=== PATIENT | male | born 1945 | race Caucasian/White ===

== ENCOUNTER 2023-07-22 10:11 | Outpatient (OUT) | payer MEDICARE, OTHER, SELFPAY ==
[2023-07-22 10:36] LABS: Basophils Absolute Auto 0.1 10^3/uL (0.0-0.1); Basophils Percent Auto 0.9 % (0.2-2.0); Eosinophils Absolute Auto 0.2 10^3/uL (0.0-0.7); Hemoglobin 14.3 g/dL (14.0-18.0); Immature Granulocytes Abs Auto 0.01 10^3/uL (0.00-0.03); Immature Granulocytes Pct Auto 0.2 % (0.0-0.5); Lymphocytes Absolute Auto 1.2 10^3/uL (1.2-3.8); Lymphocytes Percent Auto 23.1 % (20.5-60.0); Mean Corpuscular HGB Conc 33.3 g/dL (29.9-35.2); Mean Corpuscular Hemoglobin 31.5 pg (25.9-34.0); Mean Corpuscular Volume 94.7 fL (80.0-94.0); Mean Platelet Volume 9.1 fL (9.5-13.5); Monocytes Absolute Auto 0.4 10^3/uL (0.3-0.8); Monocytes Percent Auto 7.7 % (1.7-12.0); Neutrophils Absolute Auto 3.5 10^3/uL (1.4-6.5); Neutrophils Percent Auto 65.1 % (43.0-75.0); Platelet Count 221 10^3/uL (150-450); Red Blood Count 4.54 10^6/uL (4.70-6.10); Red Cell Distribution Width 12.4 % (11.0-15.0); White Blood Count 5.3 10^3/uL (4.0-11.0)
[2023-07-22 11:05] LABS: Alanine Aminotransferase 23 U/L (16-63); Anion Gap 10.8; Calcium 9.6 mg/dL (8.5-10.1); Carbon Dioxide 28.8 mmol/L (21.0-32.0); Chloride 104 mmol/L (98-107); Chol HDL Ratio 2.5; Cholesterol 126 mg/dL (<=200); Estimated GFR (African America >60 (>=60); Estimated GFR (Non-African Ame >60 (>=60); Glucose 87 mg/dL (74-106); HDL Cholesterol 51 mg/dL (40-60); LDL Cholesterol Calculated 65.8 mg/dL; Potassium 4.6 mmol/L (3.5-5.1); Sodium 139 mmol/L (136-145); Triglycerides 46 mg/dL (<=150); VLDL CHOLESTEROL 9.2 mg/dL
[2023-07-22 11:18] LABS: Prostate Specific Antigen Scrn 2.45 ng/mL (<=4.00)
== END 2023-07-22 10:12 | disposition home or self-care (01) ==
LOC: LAB 10:16
PROVIDERS: PCP Internal Medicine; Visit Provider Internal Medicine
DX: E78.00 Pure hypercholesterolemia, unspecified (principal); I10 Essential (primary) hypertension; Z12.5 Encounter for screening for malignant neoplasm of prostate; Z79.899 Other long term (current) drug therapy
CPT/HCPCS: 36415; 80048; 80061; 84460; 85025; G0103

== ENCOUNTER 2024-07-25 09:14 | Outpatient (OUT) | payer MEDICARE, OTHER, SELFPAY ==
--- OUTSIDE RECORDS SUMMARY | 2024-07-25 09:16 | XMS_ITS | CCD ---
Author Organization [facility] Care Team Providers Care Eligibility Counselor Name Role Phone DR MAXIMILIANO CALHOUN Admitting Unavailable SHAMIR, DR ZAMORANO Attending Unavailable SHAMIR, DR ZAMORANO Primary Care Unavailable SHAMIR, DR ZAMORANO Consulting Maximiliano Snyder Unavailable Allergies Allergy Classification Reported Allergen(s) Allergy Type Date of Onset Reaction(s) Facility (1 source) patient allergy list reviewed by nurse or physicia Propensity to adverse reactions 9 Comment:Done [facility] Other Medications Current Medications Medication Drug Class(es) Dates Sig (Normalized) Sig (Original) atorvastatin 20 mg oral tablet (3 sources) HMG-CoA Reductase Inhibitor take 1 tablet by mouth once daily in the evening Atorvastatin Calcium 20 MG TAKE 1 TABLET BY MOUTH DAILY IN THE EVENING Active betamethasone 0.5 mg/ml / clotrimazole 10 mg/ml topical cream (3 sources) Azole Antifungal, Corticosteroid Clotrimazole-Betame thasone 1-0.05 % 1 application Externally Twice a day Active lisinopril 20 mg oral tablet (3 sources) Angiotensin Converting Enzyme Inhibitor take 1 tablet by mouth once daily Lisinopril 20 MG TAKE 1 TABLET BY MOUTH DAILY Active loratadine 10 mg oral tablet (3 sources) take 1 tablet by mouth every twenty-four hours Loratadine 10 MG 1 tablet Orally Once a day Active omeprazole 20 mg delayed release oral capsule (3 sources) Proton Pump Inhibitor take 1 capsule by mouth once daily Omeprazole 20 MG 1 capsule 30 minutes before morning meal Orally Once a day for 90 days Active take 1 capsule by mouth once panda ly Omeprazole 40 MG 1 capsule 30 minutes before morning meal Orally Once a day Active Problems Active Problems Problem Classification Problem Date Documented Da te Episodic/Chronic Abdominal pain (4 sources) Epigastric pain; Translations: [Epigastric pain] Episodic Disorders of lipid metabolism (14 sources) Familial hypercholesterolemi a; Translations: [Pure hypercholesterolemi a] Onset: 08-02-1959 Chronic Esophageal disorders (6 sources) Gastro-esophageal reflux disease with esophagitis; Translations: [Gastroesophageal reflux disease with esophagitis without hemorrhage] Chronic Essential hypertension (10 sources) Essential (primary) hypertension; Translations: [Essential hypertension] Onset: 07-29-2022 Chronic Hyperplasia of prostate (6 sources) Lower urinary tract symptoms due to benign prostatic hypertrophy; Translations: [Benign prostatic hyperplasia with lower urinary tract symptoms] Onset: 05-26-2016 Chronic Immunizations and screening for infectious disease (1 source) Vaccination given; Translations: [Encounter for immunization] Episodic Mycoses (3 sources) Tinea corporis; Translations: [Tinea corporis] Episodic Neoplasms of unspecified nature or uncertain behavior (4 sources) Carcinoid tumor of stomach; 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] Episodic Other aftercare (1 source) 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; Translations: [[facility] CURRENT DRUG THERAPY] Onset: 07-29-2022 Episodic Other aftercare (1 source) Long-term current use of drug therapy; Translations: [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] Episodic Other and unspecified benign neoplasm (3 sources) Adenomatous polyp of colon ; Translations: [Benign neoplasm of descending colon] Episodic Other and unspecified benign neoplasm (1 source) Benign neoplasm of descending colon Episodic Other and unspecified benign neoplasm (1 source) Benign neoplasm of colon; Translations: [Benign neoplasm of colon] Episodic Other injuries and conditions due to external causes (1 source) History of fall; Translations: [History of falling] Episodic Other nutritional; endocrine; and metabolic disorders (1 source) Obesity; Translations: [Obesity, unspecified] Onset: 05-23-2015 Chronic Other nutritional; endocrine; and metabolic disorders (4 sources) Overweight; Translations: [Overweight] Episodic Other upper respiratory disease (3 sources) Allergic rhinitis due to pollen; Translations: [Allergic rhinitis due to pollen] Chronic Other upper respiratory disease (1 source) Allergic rhinitis due to pollen Chronic Other upper respiratory disease (1 source) Allergic rhinitis; Translations: [Allergic rhinitis, unspecified] Chronic Other upper respiratory disease (1 source) Seasonal allergic rhinitis; Translations: [Other seasonal allergic rhinitis] Onset: 08-02-1959 Chronic Other upper respiratory infections (2 sources) Acute maxillary sinusitis; Translations: [Acute recurrent maxillary sinusitis] Onset: 03-05-2017 Episodic Past or Other Problems Problem Classification Problem Date Documented Date Episodic/Chronic Bacterial infection; unspecified site (1 source) Bacterial infectious disease; Translations: [Bacterial infection, unspecified, in conditions classified elsewhere and of unspecified site] Onset: 03-05-2017 Episodic Esophageal disorders (3 sources) Esophageal disorders; Translations: [Gastro-esophageal reflux disease with esophagitis, without bleeding] Genitourinary symptoms and ill-defined conditions (1 source) Microscopic hematuria; Translations: [Microscopic hematuria] Onset: 03-23-2013 Episodic Malaise and fatigue (2 sources) Malaise and fatigue; Translations: [Other malaise and fatigue] Onset: 03-23-2013 Episodic Other connective tissue disease (1 source) Pain in forearm; Translations: [Pain in joint, forearm] Onset: 05-26-2016 Episodic Other male genital disorders (1 source) Disorder of prostate; Translations: [Unspecified disorder of prostate] Onset: 03-23-2013 Episodic Other nutritional; endocrine; and metabolic disorders (1 source) Body mass index 25-29 - overweight; Translations: [Body mass index 27.0-27.9, adult] Onset: 03-05-2017 Episodic Other screening for suspected conditions (not mental disorders or infectious disease) (2 sources) Encounter for screening for malignant neoplasm of prostate; Translations: [Encounter for screening for diseases of the blood and blood-forming organs and certain disorders involving the immune mechanism] Onset: 05-23-2015 Episodic Other upper respiratory disease (1 source) Bleeding from nose; Translations: [Epistaxis] Onset: 08-15-2015 Episodic Residual codes; unclassified (1 source) Requires influenza virus vaccination; Translations: [Need for prophylactic vaccination and inoculation, Influenza] Onset: 05-02-2018 Episodic Residual codes; unclassified (1 source) Family history of malignant neoplasm of gastrointestinal tract; Translations: [Family history of malignant neoplasm of digestive organs] Onset: 05-01-2014 Episodic Unclassified (1 source) Long-term current use of drug therapy; Translations: [Long-term (current) use of other medications] Onset: 06-29-2018 Results Test Name Value Interpretation Reference Range Facil ity CBC AUTO DIFFon 07-21-2022 BASO # 0.0 103/ul Normal 0.0-0.1 [facility] Comment on above: Performed By: #### C BC #### [facility] [address] [address] [address] Angelina Sanders Basophils/100 WBC (Bld) 0.6 % Normal 0.2-2.0 [facility] Comment on above: Performed By: #### C BC #### [facility] [address] [address] [address] Angelina Sanders EO # 0.2 103/ul Normal 0.0-0.7 [facility] Comment on above: Performed By: #### C BC #### [facility] [address] [place] [address] Dr. Angelina Sanders Eosinophils/100 WBC (Bld) 3.1 % Normal 0.9-7.0 [facility] Comment on above: Performed By: #### C BC #### [facility] [address] [place] [address] Dr. Angelina Sanders Erythrocyte distribution width (RBC) [Ratio] 12.4 % Normal 11.0-15.0 [facility] Comment on above: Performed By: #### C BC #### [facility] [address] [place] [address] Dr. Angelina Sanders Hematocrit (Bld) [Volume fraction] 43.9 % Normal 42.0-54.0 [facility] Comment on above: Performed By: #### C BC #### [facility] [address] [place] [address] Dr. Angelina Sanders Hemoglobin (Bld) [Mass/Vol] 14.8 g/dL Normal 14.0-18.0 [facility] Comment on above: Performed By: #### C BC #### [facility] [address] [place] [address] Dr. Angelina Sanders IG # 0.01 10e3/ul Normal 0.00-0.03 [facility] Comment on above: Performed By: #### C BC #### [facility] [address] [place] [address] Dr. Angelina Sanders IG % 0.2 % Normal 0.0-0.5 [facility] Comment on above: Performed By: #### C BC #### [facility] [address] [place] [address] Dr. Angelina Sanders LYMPH # 1.3 103/ul Normal 1.2-3.8 [facility] Comment on above: Performed By: #### C BC #### [facility] [address] [place] [address] Dr. Angelina Sanders Lymphocytes/100 WBC (Bld) 23.8 % Normal 20.5-60.0 [facility] Comment on above: Performed By: #### C BC #### [facility] [address] [place] [address] Dr. Angelina Sanders MANUAL DIFF REQ NO Normal [facility] Comment on above: Performed By: #### C BC #### [facility] [address] [place] [address] Dr. Angeilna Sanders MCH (RBC) [Entitic mass] 31.1 pg Normal 25.9-34.0 [facility] Comment on above: Performed By: #### C BC #### [facility] [address] [place] [address] Dr. Angelina Sanders MCHC (RBC) [Mass/Vol] 33.7 g/dL Normal 29.9-35.2 [facility] Comment on above: Performed By: #### C BC #### [facility] [address] [place] [address] Dr. Angelina Sanders MCV (RBC) [Entitic vol] 92.2 fL Normal 80.0-94.0 [facility] Comment on above: Performed By: #### C BC #### [facility] [address] [place] [address] Dr. Angelina Sanders MONO # 0.4 103/ul Normal 0.3-0.8 [facility] Comment on above: Performed By: #### C BC #### [facility] [address] [place] [address] Dr. Angelina Sanders Monocytes/100 WBC (Bld) 8.1 % Normal 1.7-12.0 [facility] Comment on above: Performed By: #### C BC #### [facility] [address] [address] [address] Angelina Sanders NEUT # 3.5 103/ul Normal 1.4-6.5 [facility] Comment on above: Performed By: #### C BC #### [facility] [address] [address] [address] Angelina Sanders Neutrophils/100 WBC (Bld) 64.2 % Normal 43.0-75.0 [facility] Comment on above: Performed By: #### C BC #### [facility] [address] [address] [address] Angelina Sanders Platelet mean volume (Bld) [Entitic vol] 9.3 fL Critically low 9.5-13.5 [facility] Comment on above: Performed By: #### C BC #### [facility] [address] [place] [address] Dr. Angelina Sanders PLT 232 103/ul Normal 150-450 [facility] Comment on above: Performed By: #### C BC #### [facility] [address] [address] [address] Angelina Sanders RBC 4.76 106/ul Normal 4.70-6.10 [facility] Comment on above: Performed By: #### C BC #### [facility] [address] [place] [address] Dr. Angelina Sanders WBC 5.4 103/ul Normal 4.0-11.0 [facility] Comment on above: Performed By: #### C BC #### [facility] [address] [place] [address] Dr. Angelina Sanders LIPID PROFILEon 07-21-2022 CHOL-HDL RATIO NORM SEE BELOW Normal [facility] Comment on above: Result Comment: 3.3 - 4.4 LOW RISK 4.4 - 7.1 AVERAGE RISK 7.1 - 11.0 MODERATE RISK >11.0 HIGH RISK Performed By: #### B MP, LIPID, ALT #### [facility] [address] [address] [address] Angelina Sanders Cholesterol [Mass/Vol] 122 mg/dL Normal <=200 [facility] Comment on above: Performed By: #### B MP, LIPID, ALT #### [facility] [address] [address] [address] Angelina Sanders Cholesterol in HDL [Mass/Vol] 50 mg/dL Normal 40-60 [facility] Comment on above: Performed By: #### B MP, LIPID, ALT #### [facility] [address] [address] [address] Angelina Sanders Cholesterol in LDL [Mass/Vol] 62.2 mg/dL Normal [facility] Comment on above: Performed By: #### B MP, LIPID, ALT #### [facility] [address] [address] [address] Angelina Sanders Cholesterol.total/C holesterol in HDL [Mass ratio] 2.4 {ratio} Normal [facility] Comment on above: Performed By: #### B MP, LIPID, ALT #### [facility] [address] [address] [address] Angelina Sanders HDL NORMAL > or = 60 mg/dl - LOW CARDIOVASCULAR RISK <40 mg/dl - HIGH CARDIOVASCULAR RISK Normal [facility] Comment on above: Performed By: #### B MP, LIPID, ALT #### [facility] [address] [address] [address] Angelina Sanders LDL CALC NORMAL SEE BELOW Normal [facility] Comment on above: Result Comment: <100 mg/dl OPTIMAL 100 - 129 mg/dl NEAR OR ABOVE OPTIMAL 130 - 159 mg/dl BORDERLINE HIGH 160 - 189 mg/dl HIGH >190 mg/dl VERY HIGH Performed By: #### B MP, LIPID, ALT #### [facility] [address] [address] [address] Angelina Sanders Triglyceride [Mass/Vol] 49 mg/dL Normal <=150 [facility] Comment on above: Performed By: #### B MP, LIPID, ALT #### [facility] [address] [address] [address] Angelina Sanders VLDL CALC 9.8 mg/dL Normal [facility] Comment on above: Performed By: #### B MP, LIPID, ALT #### [facility] [address] [address] [address] Angelina Sanders PROF CHEM 8 (BAS METB)on Anion gap [Moles/Vol] 9.9 mmol/L Normal [facility] Comment on above: Performed By: #### B MP, LIPID, ALT #### [facility] [address] [place] [address] Dr. Angelina Sanders Calcium [Mass/Vol] 9.4 mg/dL Normal 8.5-10.1 [facility] Comment on above: Performed By: #### B MP, LIPID, ALT #### [facility] [address] [address] [address] Angelina Sanders Chloride [Moles/Vol] 104 mmol/L Normal 98-107 [facility] Comment on above: Performed By: #### B MP, LIPID, ALT #### [facility] [address] [place] [address] Dr. Angelina Sanders CO2 [Moles/Vol] 31.3 mmol/L Normal 21.0-32.0 [facility] Comment on above: Performed By: #### B MP, LIPID, ALT #### [facility] [address] [place] [address] Dr. Angelina Sanders Creatinine [Mass/Vol] 0.95 mg/dL Normal 0.70-1.30 [facility] Comment on above: Performed By: #### B MP, LIPID, ALT #### [facility] [address] [place] [address] Dr. Angelina Sanders EGFR-AF TUVALUAN >60 Normal >=60 [facility] Comment on above: Performed By: #### B MP, LIPID, ALT #### [facility] [address] [place] [address] Dr. Angelina Sanders EGFR-NON AF TUVALUAN >60 Normal >=60 [facility] Comment on above: Performed By: #### B MP, LIPID, ALT #### [facility] [address] [place] [address] Dr. Angelina Sanders Glucose [Mass/Vol] 93 mg/dL Normal 74-106 [facility] Comment on above: Performed By: #### B MP, LIPID, ALT #### [facility] [address] [place] [address] Dr. Angelina Sanders Potassium [Moles/Vol] 5.2 mmol/L Critically high 3.5-5.1 [facility] Comment on above: Performed By: #### B MP, LIPID, ALT #### [facility] [address] [place] [address] Dr. Angelina Sanders Sodium [Moles/Vol] 140 mmol/L Normal 136-145 [facility] Comment on above: Performed By: #### B MP, LIPID, ALT #### [facility] [address] [place] [address] Dr. Angelina Sanders Urea nitrogen [Mass/Vol] 16.0 mg/dL Normal 7.0-18.0 [facility] Comment on above: Performed By: #### B MP, LIPID, ALT #### [facility] [address] [place] [address] Dr. Angelina Sanders Urea nitrogen/Creatinine [Mass ratio] 16.8 mg/mg Normal [facility] Comment on above: Performed By: #### B MP, LIPID, ALT #### [facility] [address] [place] [address] Dr. Angelina Sanders [facility] 07-21-2022 ALT [Catalytic activity/Vol] 18 U/L Normal 16-63 [facility] Comment on above: Performed By: #### B MP, LIPID, ALT #### [facility] [address] [place] [address] Dr. Angelina Oneal 08-18-2021 L Specimen: [id number] Received: 08/18/21 Status: NATALIA Abraham Num: [id number] Spec Type: Surgical Subm Dr: Ron Moscoso MD Tissues: A Colon - Polyp (CECUM) Procedures: HE Stain/2, Gross/Micro L4 Patient Age/Sex Location Account Attending Physician Jorge Mtz/[facility] [id number] Ron Moscoso MD SPEC NUM: [id number] RECD: 08/18/21 STATUS: NATALIA ABRAHAM NUM: [id number] MARÍA: 08/18/[address]- [facility] DR: Ron Moscoso MD ENTERED: 08/18/[address] [facility] [address]: SPEC TYPE: Surgical DEPT: S REC BY: [id number] ORDERED: HE Stain/2, Gross/Micro L4 ORDERED: HE Stain/2, Gross/Micro L4 Pathological Diagnosis Cecal polyp, polypectomy: - Inflammatory polyp. Clinical Information Screening Gross Description Received in formalin labeled with the patient's name, number and cecum polyp are multiple possible clayton tissue fragments admixed with brown yellow vegetable material aggregating 2 x 1.5 x 0.3 cm. Entirely submitted in one cassette labeled A1. Type of Fixative: 10% Neutral Buffered Formalin (RUCHI/YClaudia) Microscopic Description Two glass slides with H E stained material have been examined. The microscopic findings support the above pathologic diagnosis. CPT Codes 34386 Specimen: [id number] Received: 08/18/21 Status: NATALIA Abraham Num: [id number] Spec Type: Surgical Subm Dr: Ron Moscoso MD Tissues: A Colon - Polyp (CECUM) Procedures: HE Stain/2, Gross/Micro L4 Patient: Jorge Mtz [id number] (Continued) Signed (signature on file) Geneva Avila MD 08/19/21 1013 [facility] COVID-19 Antigenon 2 COVID-19 Antigen Healthcare Worker?: N Kemar Reference Kemar Reference Negative SARS-CoV+SARS-CoV-2 (COVID-19) Ag [Presence] in Respiratory specimen by Rapid immunoassay Negative for SARS Antigen by JANET COVID19 Blank Space Kemar Disclaimer Negative results, from patients with symptom Kemar Disclaimer onset beyond five days, should be treated as Kemar Disclaimer presumptive and confirmation with a molecular Kemar Disclaimer assay, if necessary, for patient management, Kemar Disclaimer may be performed. Negative results do not rule Kemar Disclaimer out COVID-19 and should not be used as the sole Kemar Disclaimer basis for treatment or patient management Kemar Disclaimer decisions, including infection control decisions. Kemar Disclaimer Negative results should be considered in the Kemar Disclaimer context of a patient's recent exposures, history Kemar Disclaimer and the presence of clinical signs and symptoms Kemar Disclaimer consistent with COVID-19. COVID19 Blank Space Kemar Disclaimer The Kemar SARS Antigen AJNET does not differentiate Kemar Disclaimer between SARS-CoV and SARS-CoV-2. COVID19 Blank Space Kemar Disclaimer This test was developed and its performance Kemar Disclaimer characteristic determined by [employer] and Kemar Disclaimer validated at [facility]. This Kemar Disclaimer test has not been FDA cleared or approved. This Kemar Disclaimer test has been authorized by FDA under an Emergency Use Kemar Disclaimer Authorization (EUA). This test has been validated Kemar Disclaimer in accordance with the FDA's Guidance Document (Policy Kemar Disclaimer for Diagnostics Testing in Laboratories Certified to Kemar Disclaimer Perform High Complexity Testing under CLIA prior to Kemar Disclaimer Emergency Use Authorization for Coronavirus Kemar Disclaimer iseas during the Public Health Emergency) Kemar Disclaimer issued on November 02, 2019. This test is only authorized Kemar Disclaimer for the duration of time the declaration that Kemar Disclaimer circumstances exist justifying the authorization of Kemar Disclaimer the emergency use of in vitro diagnostic tests for Kemar Disclaimer detection of SARS-CoV-2 virus and/or diagnosis of Kemar Disclaimer COVID-19 infection under section 564(b)(1) of the Kemar Disclaimer Act, 21 U.S.C. 360bbb-3(b)(1), unless the Kemar Disclaimer authorization is terminated or revoked sooner. PERFORMED BY: [place] [id number] PATHOLOGIST ELECTRICIAN HELPER CLEVE MCCULLOUGH M.D. Normal [facility] Comment on above: Performed By: #### C OVID-19 KEMAR, SOFIANEG #### [address] Kemar Ag Negativeon 08-14-19 22 Kemar Ag Negative Negative Normal Negative [facility] Comment on above: Result Comment: This is a duplicate Kemar SARS Antigen (JANET) result to be used for statistical tracking purpose only. PERFORMED BY: [place] [id number] PATHOLOGIST ELECTRICIAN HELPER CLEVE MCCULLOUGH M.D. Performed By: #### C OVID-19 KEMAR, SOFIANEG #### [place] [id number] [facility] Vital Signs Date Time Vital Sign Value Performing Clinician Facility 01-19-2023 09:00-0400 Body height 172.72 cm Maximiliano Calhoun Other [facility] Other 01-19-2023 09:00-0400 Body mass index (BMI) [Ratio] 26.09 kg/m2 Maximiliano Calhoun Other [facility] Other 01-19-2023 09:00-0400 Body weight 77.84 kg Maximiliano Calhoun Other [facility] Other 01-19-2023 09:00-0400 Diastolic blood pressure 88 mm[Hg] Maximiliano Calhoun Other [facility] Other 01-19-2023 09:00-0400 Respiratory rate 12 /min Maximiliano Calhoun Other [facility] Other 01-19-2023 09:00-0400 Systolic blood pressure 138 mm[Hg] Maximiliano Calhoun Other [facility] Other Encounters Encounter Date Encounter Type Care Provider Facility Start: 08-31-2023 End: 08-31-2023 ambulatory Maximiliano Calhoun Other [facility] Other Start: 08-31-2023 Telephone encounter Maximiliano Calhoun [facility] Start: 05-04-2023 End: 05-04-2023 ambulatory Maximiliano Calhoun Other [facility] Other Start: 05-04-2023 Nursing evaluation o f patient and report Maximiliano Calhoun [facility] Start: 01-19-2023 End: 01-19-2023 ambulatory Maximiliano Shamir Other [facility] Other Start: 01-19-2023 Office outpatient vi sit 25 minutes Maximiliano Calhoun [facility] Start: 07-21-2022 Adult health examination Maximiliano Calhoun Other [facility] Other Start: 07-21-2022 End: 07-22-[address] MAXIMILIANO CALHOUN Facility:[facility]1 Procedures Date Procedure Procedure Detail Performing Clinician Start: 07-21-[address] JARAMILLO IN [facility] Comment on above: Performed By: #### [facility] #### [facility] [address] [address] [address] Angelina Sanders Start: 06-29-2018 General examination of patient Maximiliano Calhoun Other Start: 05-26-2016 Screening for malign ant neoplasm of colon Maximiliano Calhoun Other Start: 03-23-2013 Screening for malign ant neoplasm of prostate Maximiliano Calhoun Other Depression screening Caitlin [facility] Other Screening for malign ant neoplasm of prostate Maximiliano [facility] Other Immunizations Immunization Date Immunization Notes Care Provider Fa karri 05-04-2023 influenza, high dose seasonal, preservative-free Maximiliano Calhoun Other [facility] Other 05-25-2022 influenza virus vaccine, split virus (incl. purified surface antigen) Maximiliano Calhoun Other [facility] Other 05-08-2021 influenza virus vaccine, split virus (incl. purified surface antigen) Maximiliano Calhoun Other [facility] Other 05-06-2020 influenza virus vaccine, split virus (incl. purified surface antigen) Maximiliano Calhoun Other [facility] Other 05-08-2019 influenza virus vaccine, split virus (incl. purified surface antigen) Maximiliano Calhoun Other [facility] Other 05-02-2018 influenza virus vaccine, split virus (incl. purified surface antigen) Maximiliano Calhoun Other [facility] Other 04-27-2017 influenza virus vaccine, split virus (incl. purified surface antigen) Maximiliano Calhoun Other [facility] Other 05-29-2016 influenza virus vaccine, split virus (incl. purified surface antigen) Maximiliano Calhoun Other [facility] Other 05-23-2015 pneumococcal conjuga te vaccine, 13 valent Maximiliano Calhoun Other [facility] Other 05-14-2015 influenza virus vaccine, split virus (incl. purified surface antigen) Maximiliano Calhoun Other [facility] Other 05-01-2014 tetanus and diphther ia toxoids, adsorbed, preservative free, for adult use (5 Lf of tetanus toxoid and 2 Lf of diphtheria toxoid) Maximiliano Calhoun Other [facility] Other 04-25-2013 pneumococcal polysaccharide vaccine, 23 valent Maximiliano Calhoun Other [facility] Other 04-25-2013 tetanus and diphther ia toxoids, adsorbed, preservative free, for adult use (5 Lf of tetanus toxoid and 2 Lf of diphtheria toxoid) Maximiliano Calhoun Other [facility] Other pneumococcal Conjuga te, unspecified formulation; Translations: [Need for prophylactic vaccination against Streptococcus pneumoniae (pneumococcus)] Maximiliano Calhoun Other [facility] Other Payers Date Payer Category Payer Medicare [id number] 1957 Private Health Insurance [id number] 1945 Unknown [id number] Social History Date Type Detail Facility Sex Assigned At [facility] Other Evaluation note 08-31-2023 Note Date & Type Note Facility 08-31-2023 Evaluation note Encounter Date Diagnosis Assessment Notes Aug, Gastroesophageal reflux disease with esophagitis without hemorrhage (ICD-10 - K21.00) [facility] Other Evaluation note 01-19-2023 Note Date & Type Note Facility 01-19-2023 Evaluation note Encounter Date Diagnosis Assessment Notes Dec, Pure hypercholesterolemia (ICD-10 - E78.00) Instructed on diet and exercise with continued statin therapy.Discusse d the beneficial effects of lowering cholesterol in reducing the risk for cerebrovascular and cardiovascular disease. Dec, Primary hypertension (ICD-10 - I10) This patient is instructed to consume a healthy, low-fat, low-salt diet. They are also encouraged to continue exercise to achieve/maintain a normal BMI. Patient is instructed on home BP measurements: - rest for 5 minutes w/o talking- positioned w/ feet on floor and arm supported- average best 2/3 readings w/ goal < 135-85 Dec, Gastroesophageal reflux disease with esophagitis without hemorrhage (ICD-10 - K21.00) Diet instructions: Smaller portions, avoid eating and laying flat, avoid eating or drinking prior to bedtime. Weight loss. 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 No melena or hematochezia. Plan repeat Dec, Non-seasonal allergic rhinitis due to pollen (ICD-10 - J30.1) Avoid allergens, continue Claritin Can add Flonase if needed [facility] Other Evaluation note Note Date & Type Note Facility Evaluation note No Information [facility] Other History general Narrative - Reported Note Date & Type Note Facility History general Narrative - Reported Type Medical History Body mass index (BMI ) of 25.0 to 29.9 Medical History Polyp of colon, villous adenoma Medical History Essential hypertension Medical History Hyperlipidemia type II Medical History Epigastric abdominal pain Medical History Benign prostatic hyp erplasia with lower urinary tract symptoms Medical History Gastro-esophageal re flux disease with esophagitis, without bleeding Medical History Tinea corporis Surgical History Colonoscopy w/ polyp ectomy, repeat 5 years 08/18/2021 Hospitalization History see surgical history [facility] Other Summary Purpose Family History No Family History Records FoundNo Family History Records Found Advance Directives No Advanced Directives Records FoundNo Advanced Directives Records Found Additional Source Comments (unrecognized sect ion and content) No Status Records FoundNo Status Records Found INFORMATION SOURCE (unrecogn ized section and content) DATE CREATED AUTHOR 08/22/2021 [facility] DATE CREATED AUTHOR AUTHOR'S ORGANBRANDO ATION 07/29/2022 [facility] REASON FOR VISIT (unrecogniz ed section and content) 6 MONTH FOLLOW UPflu shotref ill FOR RECORDS PERTAINING TO PATIENTS WHO ARE OR HAVE BEEN ENROLLED IN A CHEMICAL DEPENDENCY/SUBSTANCEABUSE PROGRAM, SOME INFORMATION MAY BE OMITTED. This clinical summary was aggregated from multiple sources. Caution should be exercised in using it in the provision of clinical care. This summary normalizes information from multiple sources, and as a consequence, information in this document may materially change the coding, format and clinical context of patient data. In addition, data may be omitted in some cases. CLINICAL DECISIONS SHOULD BE BASED ON THE PRIMARY CLINICAL RECORDS. [facility] [employer] provides no warranty or guarantee of the accuracy or completeness of information in this document.
[2024-07-25 09:25] LABS: Basophils Percent Auto 0.7 % (0.2-2.0); Eosinophils Absolute Auto 0.2 10^3/uL (0.0-0.7); Eosinophils Percent Auto 4.2 % (0.9-7.0); Hematocrit 42.7 % (42.0-54.0); Hemoglobin 14.3 g/dL (14.0-18.0); Immature Granulocytes Abs Auto 0.01 10^3/uL (0.00-0.03); Immature Granulocytes Pct Auto 0.2 % (0.0-0.5); Lymphocytes Absolute Auto 1.2 10^3/uL (1.2-3.8); Lymphocytes Percent Auto 21.2 % (20.5-60.0); Mean Corpuscular HGB Conc 33.5 g/dL (29.9-35.2); Mean Corpuscular Hemoglobin 31.3 pg (25.9-34.0); Mean Corpuscular Volume 93.4 fL (80.0-94.0); Mean Platelet Volume 9.1 fL (9.5-13.5); Monocytes Absolute Auto 0.5 10^3/uL (0.3-0.8); Monocytes Percent Auto 7.9 % (1.7-12.0); Neutrophils Absolute Auto 3.8 10^3/uL (1.4-6.5); Neutrophils Percent Auto 65.8 % (43.0-75.0); Platelet Count 211 10^3/uL (150-450); Red Blood Count 4.57 10^6/uL (4.70-6.10); Red Cell Distribution Width 12.6 % (11.0-15.0); White Blood Count 5.7 10^3/uL (4.0-11.0)
[2024-07-25 10:42] LABS: Alanine Aminotransferase 23 U/L (16-63); Albumin Level 3.4 g/dL (3.4-5.0); Alkaline Phosphatase 75 U/L (46-116); Anion Gap 8.2; Aspartate Amino Transferase 19 U/L (15-37); Bilirubin Total 0.7 mg/dL (0.2-1.0); Calcium 8.9 mg/dL (8.5-10.1); Carbon Dioxide 30.2 mmol/L (21.0-32.0); Chloride 107 mmol/L (98-107); Chol HDL Ratio 2.3; Cholesterol 120 mg/dL (<=200); Estimated GFR (African America >60 (>=60 mL/min/1.73m^2); Estimated GFR (Non-African Ame >60 (>=60 mL/min/1.73m^2); Globulin 3.4 g/dL; Glucose 95 mg/dL (74-106); HDL Cholesterol 52 mg/dL (40-60); LDL Cholesterol Calculated 60.4 mg/dL; Potassium 4.4 mmol/L (3.5-5.1); Sodium 141 mmol/L (136-145); Total Protein 6.8 g/dL (6.4-8.2); Triglycerides 38 mg/dL (<=150); VLDL CHOLESTEROL 7.6 mg/dL
[2024-07-25 11:16] LABS: Prostate Specific Antigen Scrn 2.91 ng/mL (<=4.00)
== END 2024-07-25 09:15 | disposition home or self-care (01) ==
PROVIDERS: PCP Internal Medicine; Visit Provider Internal Medicine
DX: E78.00 Pure hypercholesterolemia, unspecified (principal); I10 Essential (primary) hypertension; Z12.5 Encounter for screening for malignant neoplasm of prostate
CPT/HCPCS: 36415; 80053; 80061; 85025; G0103

== ENCOUNTER 2025-07-30 10:07 | Outpatient (OUT) | payer MEDICARE, OTHER, SELFPAY ==
--- OUTSIDE RECORDS SUMMARY | 2025-07-30 05:01 | XMS_ITS | Continuity of Care Document ---
Author Organization [facility] Address [address] [place] [address] Phone Care Team Providers Care Maths Tutor Name Role Phone Maximiliano Barksdale DO Primary Care Provider Maximiliano Barksdale DO Attending Provider Care Teams Patient Care Team Team Status: Active Member Role/Relationship Status Dates Maximiliano Barksdale DO Primary Care Provider Active Patient Care Team Team Status: Inactive Member Role/Relationship Status Dates Maximiliano Barksdale DO Primary Care Provider Active Start: July 30, 2025 End: July 30enjamelania Barksdale DOAttending ProviderActiveStart: July 30, 2025 End: July 30, 2025 Chief Complaint and Reason for Visit Chief Complaint Admit Date Wellness July 30, 2025 8:59am Reason for Visit Admit Date GERD (gastroesophageal reflux disease) D ecember 2024 8:59am Hypercholesterolemia July 30, 2025 8:59am Hypertension July 30, 2025 8:59am Medicare annual wellness visit, subseque nt July 30, 2025 8:59am Overweight July 30, 2025 8:59am Screening PSA (prostate specific antigen ) July 30, 2025 8:59am Strain of cervical portion of right trap ezius muscle July 30, 2025 8:59am Allergies, Adverse Reactions, Alerts Allergen Type Severity Reaction Last Updated Verified Status No Known Allergies Allergy Unknown July 30, 2025 9:08amYesActive Social History Smoking Status Status Start Date End Date Date of Observa tion Never smoked tobacco (finding) August 18, 2021 7:17am Observation Status Observation Response Date of Response Legal Sex Male (finding) Sex Assigned At BirthMaleMay 1945 Family History Relationship Condition Age at Onset Recorded Date/T corie father Heart disease Unknown Malignant neoplasm of colonUnknownmotherMalignant neoplasmUnknown Problems Active Problems Problem Diagnosis/Recorded Date Onset Date Status C omments High risk medication use July 30, 2025 9:50am Unknow n Active Medicare annual wellness visit, subsequentDe2023 7:15amUnknown ActiveScreening PSA (prostate specific antigen)July 21, 2024 7:16amUnknown ActivePSA: 2.52 - 07/2021, 2.87 - 07/2022, 2.45 - 07/2023, 2.91 - 07/2024 HypercholesterolemiaJune 2023 6:21amUnknownActiveOverweightJune 2023 8:32amUnknownActiveBenign prostatic hyperplasia with lower urinary tract symptomsJune 2023 6:22amUnknownActiveStrain of cervical portion of right trapezius muscleJune 2024 8:21amUnknownActiveGERD (gastroesophageal reflux disease)August 18, 2021 7:12amUnknownActiveHypertensionJune 2023 6:22am UnknownActive Medications Medication Status Dose Units Route Directions Qty Days Refills S tart Date Stop Date End Date Reason(s) Instructions Adherence Lisinopril 20 mg tablet Discontinued 0 .ROUTE.RQVPOCI527Blmxq 2023 4:50pmJune 2023 8:11amTAKE 1 TABLET BY MOUTH DAILYAtorvastatin 20 mg tabletDiscontinued0.ROUTE.VGDUZOV277Upxb2023 12:12pmJune 2024 6:52amTAKE 1 TABLET BY MOUTH DAILY IN THE EVENING Omeprazole 20 mg capsule,delayed release(DR/EC)Discontinued0.ROUTE.TOHBIAV367 August 08, 2024 1:[facility] 7:33amTAKE 1 CAPSULE BY MOUTH ONCE DAILY 1/2 HOUR BEFORE BREAKFASTLisinopril 20 mg tabletActive0.ROUTE.LQBAOJK747 October 24, 2024 11:01amTAKE 1 TABLET BY MOUTH DAILYComplies with drug therapy Atorvastatin 20 mg tabletActive0.ROUTE.FIVMILV454Phcr2024 6:52amTAKE 1 TABLET BY MOUTH DAILY IN THE EVENINGComplies with drug therapyOmeprazole 20 mg capsule,delayed release(DR/EC)Xhpjga00GMWHBxbak41127Yqbrwjhx 2024 7:33am Take on an empty stomach, 30 minutes prior to bkfstComplies with drug therapy Atorvastatin 20 mg dsumlrHskwreyxhwws31GWJFAsezeOcfvgoc 2021 12:00amJune 2023 12:12pmLisinopril 20 mg ybxinvRklrkexmulct29LEWVIflftOivgnsq 2021 12:00amApril 2023 4:50pmOmeprazole 20 mg capsule,delayed release(DR/EC)Fwqgjmfadzzz81EZTGGqbtdSqvyord 2021 12:00amJanuary 2024 1:01pmLoratadine 10 mg ItrxkyPploqx31DXOEUebtbBislqtq 2021 12:00amComplies with drug therapyClotrimazole-Betamethasone 1-0.05 % ipnnmUooelx4RJUALBVSSCQLF Twice dailyJune 2023 11:00pmComplies with drug therapyLisinopril 20 mg rlixktSnjixoloseba32MDYYKrqgoMesu 2023 8:11amMarch 2024 11:01am Immunizations Immunization Event Date Not Given Reason 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 Number 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 Number Reason(s) Given Vaccine Information Statement (VIS) Detail Administration Location COVID-19 mRNA-1273 (Moderna) September 07, 2020 COVID-19 mRNA-1273 (Moderna)October 08OVID-19 mRNA-1273 (Moderna)May 26, 2021Fluzone TIV High-Dose 65YR+June 13, [id number] HospitalFluzone TIV High-Dose 65YR+April 04, [id number] [facility] Tylerinfluenza, unspecified formulationOctober 2014influenza, unspecified formulationOctober 2015influenza, unspecified formulationSeptember 2016influenza, unspecified formulationOctober 2017influenza, unspecified formulationOctober 2018influenza, unspecified formulationOctober 2019 influenza, unspecified formulationOctober 2020influenza, unspecified formulationOctober 2021influenza, unspecified formulationOctober 2022 Pneumococcal Conjugate Vaccine, 13 valentOctober 2014Pneumococcal Polysacc. Vaccine, 23 valentSeptember 2012Tetanus, Diphtheria adult, 5 Lf pres free absSeptember 2012Tetanus, Diphtheria adult, 5 Lf pres free abs May 01, 2014 Vital Signs Vital Reading Result Reference Range Collection Date/Time Height 68 [in_i] July 30, 2025 9:17jwTgkrhe35.74 kgDecember 2024 9:19amHeart Rate56 /jkc59-896Afpubmqx 2024 9:19amRespiratory rate12 /etk44-81Saxtatkf 2024 9:19amBP Bhqlvjez978 mm[Hg]100-140Dece2024 9:19amBP Ipwucswee62 mm[Hg]60-100December 2024 9:19amBMI (Body Mass Index)25.4 kg/k7Ltmqzgzj2024 9:19am Advance Directives Advance Directive Response Recorded Date/ Time Advance Directives No August 14, 2021 1:25pm Insurance Providers Guarantor Melvin Fowler Address [address] [facility] [address]Nuunedq Info.Home Phone: Payer Group Member ID Coverage Type Subscriber Relationship to Subscriber Effective Date Expiration Date Medicare [id number] W Johnson Id: [id number] [address] [facility] [address] Home Phone: selfMedicare [employer] PG[employer] [id number] W Johnson Id: [id number] [address] [facility] [address] Home Phone: selfUnited [employer] Id: [id number] W Johnson Id: [id number] [address] [facility] [address] Home Phone: Self Encounters Encounter Location(s) Arrival/Admit Date Discharge/Departure Date Discharge/Departure Disposition Provider(s) Departed Physician/ Provider [facility] Visit -[facility] July 30, 2025 8:59am July 30, 2025 9:56am Discharged to home care or self care (routine discharge) Maximiliano Barksdale , Recent Diagnosis Onset Date Admit Date GERD (gastroesophageal reflux disease) Unknown July 30, 2025 8:59am Hypercholesterolemia Unknown July 302024 8:59am Hypertension Unknown July 30 8:59am Medicare annual wellness visit, subsequent Unkno wn July 30, 2025 8:59am Overweight Unknown July 30 8:59am Screening PSA (prostate specific antigen) Unknow n July 30, 2025 8:59am Strain of cervical portion o f right trapezius muscle Unknown July 30, 2025 8:59am Assessments Diagnosis Onset Date Resolution Status Admit Date GERD (gastroesophageal reflux disease) acuteDecember 2024 8:59amHypercholesterolemiaacuteDeceer 2024 8:59amHypertensionacuteDeceer 2024 8:59amMedicare annual wellness visit, subsequentacuteDecember 2024 8:59amOverweightacuteDecember 2024 8:59amScreening PSA (prostate specific antigen)acuteDe2024 8:59am Strain of cervical portion of right trapezius muscleacuteDeceer 2024 8:59am Plan of Treatment Author [facility] 7:37amI have instructed this patient to consume a healthy, low-fat, low-salt diet. I have also encouraged them to continue exercise with weight loss to achieve/maintain a BMI < 30. I have instructed this patient on the correct procedure for obtaining home BP measurements:? - rest for 5 minutes w/o talking. - positioned w/ feet on floor and arms supported. - average best 2/3 readings w/ goal < 135/85. Borderline elevation of BP readings in office Stop using Motrin for pain relief, which may be the culprit Update office w/ home readings in 2 weeks. Continue Lisinopril without interruption I have instructed this patient on a low fat, high fiber diet and exercise. I have discussed the primary and secondary prevention benefits attributed to lowering LDL cholesterol. I have also discussed the medical treatment of elevated cholesterol, which is based on the 10 year ASCVD risk. Continue Atorvastatin without interruption I have instructed this patient to avoid lying flat after eating.?? I have also recommended to avoid eating 2 hours prior to bedtime.?? They were also informed that smaller, frequent meals may be better tolerated. I have discussed additional treatment options for persistent symptoms, which includes: weight loss, H2 blockers and PPI. I have also instructed them to notify the office with any pain or difficulty swallowing. Continue Omeprazole without interruption Instructed to avoid use of NSAIDs due to hypertension. Begin Tylenol 1000mg tid. Use Voltaren Gel or Lidocaine crm as needed. ROM exercises w/ instructions and handouts reviewed Notify office w/ any radicular pain, N/T or weakness I have instructed this patient on a low-fat, high-fiber diet.?? I have also instructed them to reduce calories, portions sizes, sweet drinks and snacks.?? I have also recommended they exercise for 30 minutes, 3-5 times weekly. They are aware of the comorbid conditions associated with excessive weight: Diabetes, HTN, Hyperlipidemia, CAD and arthritis. I have instructed this patient on the recommended lifestyle changes, which includes a low fat, high fiber diet along with a regular exercise routine. I have also reviewed the recommended age-appropriate preventive testing for this patient. I have also reviewed the recommended vaccines for their age and risk factors. I have recommended yearly PSA testing. I have informed him that the PSA can be elevated w/ cancer, infection and enlarged prostates. I have explained to the patient, that If his PSA is elevated, while there are many causes, referral will be recommended to r/o cancer. He would be referred to Urology, who may recommend an MRI, TRUS/bx or possibly continued monitoring. He is agreeable to this plan of action PSA: 2.52 - 07/2021, 2.87 - 07/2022, 2.45 - 07/2023, 2.91 - 07/2024 Future Tests Future scheduled test information is unavailable Pending Tests Test Name Ordered Date Scheduled Date Comprehensive Metabolic Panel July 30 9:49am Future Visits Future appointment information is unavailable Future Procedures Procedure Name Ordered Date Scheduled Date Complete Blood Count Auto Diff July 30 9:49am Lipid PanelDecember 2024 9:49amPSA Screen (Yearly Only)July 30, 2025 9:49am Future Medications Future medication information is unavailable Patient Instructions Patient instructions are unavailable
--- OUTSIDE RECORDS SUMMARY | 2025-07-30 10:18 | XMS_ITS | CCD ---
Author Organization [facility] ion Partnership [facility] Care Team Providers Care Kitchen Food Server Name Role Phone DR MAXIMILIANO BARKSDALE Admitting Unavailable SHAMIR, DR ZAMORANO Attending Unavailable SHAMIR, DR ZAMORANO Primary Care Unavailable SHAMIR, DR ZAMORANO Consulting Unavailable Maximiliano Barksdale Unavailable Maximiliano Barksdale DO Primary Care Provider Maximiliano Barksdale DO Attending Provider [phone] Allergies Allergy ClassificationReported Allergen(s)Allergy TypeDate of OnsetReaction(s) Facility (1 source)patient allergy list reviewed by nurse or physiciaPropensity to adverse hnodeeoes44-20-8721Hoqwqiw:ImmuneXcite Other Medications Current Medications MedicationDrug Class(es)DatesSig (Normalized)Sig (Original)atorvastatin 20 mg oral tablet (9 sources)HMG-CoA Reductase InhibitorStart: 01-24-2024 End: 53-53-6681ceot 1 tablet by mouth once daily in the eveningStart: 08-18-2021 End: 65-88-6033jzbx 1 tablet by mouth once dailyAtorvastatin 20 mg tablet Discontinued 20 MG PO Daily August 18, 2021 1:00am January 24, 2024 1:12pm betamethasone 0.5 mg/ml / clotrimazole 10 mg/ml topical cream (5 sources)Azole Antifungal, CorticosteroidStart: 88-74-1088Qyhjcznkpoqk- Betamethasone 1-0.05 % 1 application Externally Twice a day Activelisinopril 20 mg oral tablet (11 sources)Angiotensin Converting Enzyme InhibitorStart: 32-24-8542hlyv 1 tablet by mouth once dailyStart: 01-21-2024 End: 96-67-8453xfrz 1 tablet by mouth once dailyLisinopril 20 mg tablet Discontinued 20 MG PO Daily January 21, 2024 9:11am October 24, 2024 12:01pm Start: 11-01-2023 End: 14-05-9752ikvi 1 tablet by mouth once dailyLisinopril 20 mg tablet Discontinued 0 .ROUTE .COMPLEX 90 November 01, 2023 5:50pm January 21, 2024 9:11am TAKE 1 TABLET BY MOUTH DAILYStart: 08-18-2021 End: 50-58-5633ytqw 1 tablet by mouth once dailyLisinopril 20 mg tablet Discontinued 20 MG PO Daily August 18, 2021 1:00am November 01, 2023 5:50pm loratadine 10 mg oral tablet (5 sources)Start: 31-67-6911zwar 1 tablet by mouth once dailyomeprazole 20 mg delayed release oral capsule (7 sources)Proton Pump InhibitorStart: 93-79-8393fvbf 1 capsule by mouth once daily before breakfastStart: 08-18-2021 End: 05-88-2289rygv 1 capsule by mouth once dailyOmeprazole 20 mg capsule,delayed release(DR/EC) Discontinued 20 MG PO Daily August 18, 2021 1:00am August 08, 2024 2:01pmtake 1 capsule by mouth once dailyOmeprazole 40 MG 1 capsule 30 minutes before morning meal Orally Once a day Active Problems Active Problems Problem ClassificationProblemDateDocumented DateEpisodic/ChronicAbdominal pain (4 sources)Epigastric pain; Translations: [Epigastric pain]EpisodicDisorders of lipid metabolism (18 sources)Familial hypercholesterolemia; Translations: [Pure hypercholesterolemia]Onset: 97-93-2942ZsuknggJonxilgebp disorders (10 sources)Gastro-esophageal reflux disease with esophagitis; Translations: [Gastroesophageal reflux disease with esophagitis without hemorrhage]01-21-2024 ChronicEssential hypertension (14 sources)Essential (primary) hypertension; Translations: [Essential hypertension]Onset: 97-34-6251ApzdftuRnkvwjrjnvq of prostate (8 sources)Lower urinary tract symptoms due to benign prostatic hypertrophy; Translations: [Benign prostatic hyperplasia with lower urinary tract symptoms] Onset: 940172-64-8782YrqoxjsVuaitmkqxswlj and screening for infectious disease (1 source)Vaccination given; Translations: [Encounter for immunization]Episodic Mycoses (3 sources)Tinea corporis; Translations: [Tinea corporis]EpisodicNeoplasms of unspecified nature or uncertain behavior (4 sources)Carcinoid tumor of stomach; 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]EpisodicOther aftercare (1 source)Other jail (current) drug therapy; Translations: [OTH GRINDING ROOM INSPECTOR CURRENT DRUG THERAPY]Onset: 27-99-3124ZxgzjgciEcbdt aftercare (1 source)Long-term current use of drug therapy; Translations: [Other terminal supervisor (current) drug therapy]EpisodicOther and unspecified benign neoplasm (3 sources)Adenomatous polyp of colon ; Translations: [Benign neoplasm of descending colon]EpisodicOther and unspecified benign neoplasm (1 source)Benign neoplasm of descending colonEpisodicOther and unspecified benign neoplasm (1 source)Benign neoplasm of colon; Translations: [Benign neoplasm of colon] EpisodicOther injuries and conditions due to external causes (1 source)History of fall; Translations: [History of falling]EpisodicOther nutritional; endocrine; and metabolic disorders (1 source)Obesity; Translations: [Obesity, unspecified]Onset: 70-95-6395Olnvgyr Other nutritional; endocrine; and metabolic disorders (8 sources)Overweight; Translations: [Overweight]60-20-3669QralrvglCocaj screening for suspected conditions (not mental disorders or infectious disease) (4 sources)Encounter for screening for malignant neoplasm of prostate; Translations: [Encounter for screening for diseases of the blood and blood- forming organs and certain disorders involving the immune mechanism]Onset: 371008-11-6254YarmgfxaVlgkftf on above:PSA: 2.52 - 07/2021, 2.87 - 07/2022, 2.45 - 07/2023, 2.91 - 12Other upper respiratory disease (3 sources)Allergic rhinitis due to pollen; Translations: [Allergic rhinitis due to pollen]ChronicOther upper respiratory disease (1 source)Allergic rhinitis due to pollenChronicOther upper respiratory disease (1 source)Allergic rhinitis; Translations: [Allergic rhinitis, unspecified] ChronicOther upper respiratory disease (1 source)Seasonal allergic rhinitis; Translations: [Other seasonal allergic rhinitis]Onset: 06-56-6968TuomqjkXhckr upper respiratory infections (2 sources)Acute maxillary sinusitis; Translations: [Acute recurrent maxillary sinusitis]Onset: 28-08-0464VipeuscuVwojeda and strains (2 sources)Strain of right trapezius muscle; Translations: [Strain of muscle, fascia and tendon at neck level,initial encounter]83-22-7782Huepcxrn Past or Other Problems Problem ClassificationProblemDateDocumented DateEpisodic/ChronicBacterial infection; unspecified site (1 source)Bacterial infectious disease; Translations: [Bacterial infection, unspecified, in conditions classified elsewhere and of unspecified site]Onset: 67-36-3263AoyjfoudDmvkbcltey disorders (3 sources)Esophageal disorders; Translations: [Gastro-esophageal reflux disease with esophagitis, without bleeding]Genitourinary symptoms and ill-defined conditions (1 source)Microscopic hematuria; Translations: [Microscopic hematuria]Onset: 67-20-5112HhpkspskMliuykz and fatigue (2 sources)Malaise and fatigue; Translations: [Other malaise and fatigue]Onset: 04-38-9789ReupvoavNudad connective tissue disease (1 source)Pain in forearm; Translations: [Pain in joint, forearm]Onset: 80-00-7648YefpnzblEygbv male genital disorders (1 source)Disorder of prostate; Translations: [Unspecified disorder of prostate] Onset: 79-15-8944WrqcjpceKxvfd nutritional; endocrine; and metabolic disorders (1 source)Body mass index 25-29 - overweight; Translations: [Body mass index 27.0-27.9, adult]Onset: 80-24-7690UtxqbpssOlqpv upper respiratory disease (1 source)Bleeding from nose; Translations: [Epistaxis]Onset: 17-20-1699Wkqvudbl Residual codes; unclassified (1 source)Requires influenza virus vaccination; Translations: [Need for prophylactic vaccination and inoculation, Influenza]Onset: 23-45-1389Ffxobgvq Residual codes; unclassified (1 source)Family history of malignant neoplasm of gastrointestinal tract; Translations: [Family history of malignant neoplasm of digestive organs]Onset: 59-56-9707PnyvtbczZllewzhehusq (1 source)Long-term current use of drug therapy; Translations: [Long-term (current) use of other medications]Onset: 06-29-2018 Results Test NameValueInterpretationReference RangeFacilityCBC AUTO DIFFon 07-21-2022 BASO #0.0 103/ulNormal0.0-0.1The [facility]Comment on above:Performed By: #### CBC #### [facility] [address] [address] [address] Angelina SandersBasophils/100 WBC (Bld)0.6 %Normal0.2-2.0The [facility] Comment on above:Performed By: #### CBC #### [facility] [address] [address] [address] Angelina Josue #0.2 103/ulNormal0.0-0.7The [facility] WestComment on above: Performed By: #### CBC #### [facility] [address] [place] [address] Dr. Angelina Cheryosinophils/100 WBC (Bld)3.1 %Normal0.9-7.0The [facility] Comment on above:Performed By: #### CBC #### [facility] [address] [place] [address] Dr. Angelina Cheryrythrocyte distribution width (RBC) [Ratio]12.4 %Mskflu88.0-15.0 The [facility] WestComment on above:Performed By: #### CBC #### [facility] [address] [place] [address] Dr. Angelina SandersHematocrit (Bld) [Volume fraction]43.9 %Sexevq83.0-54.0The [facility] WestComment on above:Performed By: #### CBC #### [facility] [address] [place] [address] Dr. Angelina SandersHemoglobin (Bld) [Mass/Vol]14.8 g/bUNxdlxt44.0-18.0The [facility] WestComment on above:Performed By: #### CBC #### [facility] [address] [place] [address] Dr. Angelina Ramon #0.01 10e3/ulNormal0.00-0.03The [facility] WestComment on above:Performed By: #### CBC #### [facility] [address] [place] [address] Dr. Angelina Ramon %0.2 %Normal0.0-0.5The [facility] WestComment on above: Performed By: #### CBC #### [facility] [address] [address] [address] Angelina Neves #1.3 103/ulNormal1.2-3.8The [facility] on above:Performed By: #### CBC #### [facility] [address] [address] [address] Angelina Hernandezhocytes/100 WBC (Bld)23.8 %Pnacjh14.5-60.0The [facility] WestComment on above:Performed By: #### CBC #### [facility] [address] [place] [address] Dr. Angelina Love DIFF REQNONormalThe [facility] WestComment on above: Performed By: #### CBC #### [facility] [address] [place] [address] Dr. Angelina Chambers (RBC) [Entitic mass]31.1 dgAexmsk66.9-34.0The [facility] WestComment on above:Performed By: #### CBC #### [facility] [address] [place] [address] Dr. Angelina Triana (RBC) [Mass/Vol]33.7 g/qCMylxvw48.9-35.2The [facility] on above:Performed By: #### CBC #### [facility] [address] [place] [address] Dr. Angelina Triana (RBC) [Entitic vol]92.2 vYZjjurn42.0-94.0The [facility] WestComment on above:Performed By: #### CBC #### [facility] [address] [place] [address] Dr. Angelina Salazar #0.4 103/ulNormal0.3-0.8The [facility] on above:Performed By: #### CBC #### [facility] [address] [place] [address] Dr. Angelina Jackocytes/100 WBC (Bld)8.1 %Normal1.7-12.0The [facility] Comment on above:Performed By: #### CBC #### [facility] [address] [place] [address] Dr. Angelina Russell #3.5 103/ulNormal1.4-6.5The [facility] WestComment on above:Performed By: #### CBC #### [facility] [address] [place] [address] Dr. Angelina Hernandezutrophils/100 WBC (Bld)64.2 %Awlxou09.0-75.0The [facility] WestComment on above:Performed By: #### CBC #### [facility] [address] [place] [address] Dr. Angelina Nguyễn mean volume (Bld) [Entitic vol]9.3 fLCritically low 9.5-13.5The [facility] WestComment on above:Performed By: #### CBC #### [facility] [address] [place] [address] Dr. Angelina EstradaT232 103/voOmgwjr384-260Ntz [facility] WestComment on above: Performed By: #### CBC #### [facility] [address] [place] [address] Dr. Angelina SandersRBC4.76 106/ulNormal4.70-6.10The [facility] WestComment on above:Performed By: #### CBC #### [facility] [address] [place] [address] Dr. Angelina SandersWBC5.4 103/ulNormal4.0-11.0The [facility] WestComment on above: Performed By: #### CBC #### [facility] [address] [place] [address] Dr. Angelina SandersLIPID PROFILEon 87-90-2205KSYR-HDL RATIO NORMSEE [facility] Main CampusComment on above:Result Comment: 3.3 - 4.4 LOW RISK 4.4 - 7.1 AVERAGE RISK 7.1 - 11.0 MODERATE RISK >11.0 HIGH RISKPerformed By: #### BMP, LIPID, ALT #### [facility] [address] [address] [address] Angelina SandersCholesterol [Mass/Vol]122 mg/dLNormal<=200[facility] Comment on above:Performed By: #### BMP, LIPID, ALT #### [facility] [address] [address] [address] Angelina SandersCholesterol in HDL [Mass/Vol]50 mg/nNXagspq48-87Kjc [facility] WestComment on above:Performed By: #### BMP, LIPID, ALT #### [facility] [address] [address] [address] Angelina SandersCholesterol in LDL [Mass/Vol]62.2 mg/dLNoMagruder Memorial HospitalComment on above:Performed By: #### BMP, LIPID, ALT #### [facility] [address] [address] [address] Angelina Hullesterhollis.total/Cholesterol in HDL [Mass ratio]2.4 {ratio} NormalThe [facility] WestComment on above:Performed By: #### BMP, LIPID, ALT #### [facility] [address] [address] [address] Angelina Cardenas NORMAL> or = 60 mg/dl - LOW CARDIOVASCULAR RISK <40 mg/dl - HIGH CARDIOVASCULAR RISKKettering Health MiamisburgComment on above:Performed By: #### BMP, LIPID, ALT #### [facility] [address] [address] [address] Angelina SandersLDL CALC NORMALSEE BELOWKettering Health MiamisburgComment on above:Result Comment: <100 mg/dl OPTIMAL 100 - 129 mg/dl NEAR OR ABOVE OPTIMAL 130 - 159 mg/dl BORDERLINE HIGH 160 - 189 mg/dl HIGH >190 mg/dl VERY HIGH Performed By: #### BMP, LIPID, ALT #### [facility] [address] [address] [address] Angelina SandersTriglyceride [Mass/Vol]49 mg/dLNormal<=150[facility] Comment on above:Performed By: #### BMP, LIPID, ALT #### [facility] [address] [address] [address] Angelina SandersVLDL CALC9.8 mg/dLNormalThe [facility] WestComment on above: Performed By: #### BMP, LIPID, ALT #### [facility] [address] [address] [address] Angelina SandersPROF CHEM 8 (BAS METB)on 43-39-1756Lthnj gap [Moles/Vol]9.9 mmol/LNormalThe [facility] WestComment on above:Performed By: #### BMP, LIPID, ALT #### [facility] [address] [address] [address] Angelina SandersCalcium [Mass/Vol]9.4 mg/dLNormal8.5-10.1The [facility] Comment on above:Performed By: #### BMP, LIPID, ALT #### [facility] [address] [address] [address] Angelina SandersChloride [Moles/Vol]104 mmol/ZKbevsb48-104Lcg [facility] Comment on above:Performed By: #### BMP, LIPID, ALT #### [facility] [address] [address] [address] Angelina SandersCO2 [Moles/Vol]31.3 mmol/KQqycyk78.0-32.0The [facility] Comment on above:Performed By: #### BMP, LIPID, ALT #### [facility] [address] [address] [address] Angelina SandersCreatinine [Mass/Vol]0.95 mg/dLNormal0.70-1.30The [facility] WestComment on above:Performed By: #### BMP, LIPID, ALT #### [facility] [address] [place] [address] Dr. Angelina CheryGFR-AF JAMAICAN>60Normal>=60The [facility] WestComment on above:Performed By: #### BMP, LIPID, ALT #### [facility] [address] [address] [address] Angelina CheryGFR-NON AF JAMAICAN>60Normal>=60The [facility] WestComment on above:Performed By: #### BMP, LIPID, ALT #### [facility] [address] [address] [address] Angelina SandersGlucose [Mass/Vol]93 mg/cVQmkzlh61-933Vnn [facility] Comment on above:Performed By: #### BMP, LIPID, ALT #### [facility] [address] [address] [address] Angelina SandersPotassium [Moles/Vol]5.2 mmol/LCritically high3.5-5.1The [facility] WestComment on above:Performed By: #### BMP, LIPID, ALT #### [facility] [address] [place] [address] Dr. Angelina Owensum [Moles/Vol]140 mmol/ZZngace754-890Dks [facility] Comment on above:Performed By: #### BMP, LIPID, ALT #### [facility] [address] [place] [address] Dr. Angelina Dinh nitrogen [Mass/Vol]16.0 mg/dLNormal7.0-18.0The [facility] WestComment on above:Performed By: #### BMP, LIPID, ALT #### [facility] [address] [place] [address] Dr. Angelina Dinh nitrogen/Creatinine [Mass ratio]16.8 mg/mgNormalThe [facility] WestComment on above:Performed By: #### BMP, LIPID, ALT #### [facility] [address] [place] [address] Dr. Angelina Barillas 37-34-4800FBC [Catalytic activity/Vol]18 U/EEyvaqh16-78Siw [facility] WestComment on above:Performed By: #### BMP, LIPID, ALT #### [facility] [address] [place] [address] Dr. Angelina Ely 08-18-2021 Specimen: [id number] Received: 08/18/21 Status: NATALIA Corea Num: [id number] Spec Type: Surgical Subm Dr: Ron Moscoso MD Tissues: A Colon - Polyp (CECUM) Procedures: HE Stain/2, Gross/Micro L4 Patient Age/Sex Location Account Attending Physician Melvin Fowler/Sherry [id number] Ron Moscoso MD SPEC NUM: [id number] RECD: 08/18/21 STATUS: NATALIA COREA NUM: [id number] MARÍA: 08/18/21- SUBM DR: Ron Moscoso MD ENTERED: 08/18/21 REBEKAH MEJIA: SPEC TYPE: Surgical DEPT: S ORDERED: HE Stain/2, Gross/Micro L4 ORDERED: HE [...] Type of Fixative: 10% Neutral Buffered Formalin (RUCHI/VINAYAK) Microscopic Description Two glass slides with H E stained material have been examined. The microscopic findings support the above pathologic diagnosis. CPT Codes 06967 Specimen: [id number] Received: 08/18/21 Status: NATALIA Corea Num: [id number] Spec Type: Surgical Subm Dr: Ron Moscoso MD Tissues: A Colon - Polyp (CECUM) Procedures: HE Stain/2, Gross/Micro L4 Patient: Melvin Fowler [id number] (Continued) Signed (signature on file) Geneva Avila MD 08/19/21 1013 [facility] Antigenon 14-52-4933NZMTM-19 AntigenHealthcare Worker?: N Kae Reference Kae Reference Negative SARS-CoV+SARS-CoV-2 (COVID-19) Ag [Presence] in Respiratory specimen by Rapid immunoassay Negative for SARS Antigen by JANET COVID19 Blank Space Kae Disclaimer Negative results, from patients with symptom Kae Disclaimer onset beyond five days, should be treated as Kae Disclaimer presumptive and confirmation with a molecular Kae Disclaimer assay, if necessary, for patient management, Kae Disclaimer may be performed. Negative results do not rule Kae Disclaimer out COVID-19 and should not be used as the sole Kae Disclaimer basis for treatment or patient management Kae Disclaimer decisions, including infection control decisions. Kae Disclaimer Negative results should be considered in the Kae Disclaimer context of a patient's recent exposures, history Kae Disclaimer and the presence of clinical signs and symptoms Kae Disclaimer consistent with COVID-19. COVID19 Blank Space Kae Disclaimer The Kae SARS Antigen JANET does not differentiate Kae Disclaimer between SARS-CoV and SARS-CoV-2. COVID19 Blank Space Kae Disclaimer This test was developed and its performance Kae Disclaimer characteristic determined by [facility] and Kae Disclaimer validated at [facility]. This Kae Disclaimer test has not been FDA cleared or approved. This Kae Disclaimer test has been authorized by FDA under an Emergency Use Kae Disclaimer Authorization (EUA). This test has been validated Kae Disclaimer in accordance with the FDA's Guidance Document (Policy Kae Disclaimer for Diagnostics Testing in Laboratories Certified to Kae Disclaimer Perform High Complexity Testing under CLIA prior to Kae Disclaimer Emergency Use Authorization for Coronavirus Kae Disclaimer iseas during the Public Health Emergency) Kae Disclaimer issued on November 02, 2019. This test is only authorized Kae Disclaimer for the duration of time the declaration that Kae Disclaimer circumstances exist justifying the authorization of Kae Disclaimer the emergency use of in vitro diagnostic tests for Kae Disclaimer detection of SARS-CoV-2 virus and/or diagnosis of Kae Disclaimer COVID-19 infection under section 564(b)(1) of the Kae Disclaimer Act, 21 U.S.C. 360bbb-3(b)(1), unless the Kae Disclaimer authorization is terminated or revoked sooner. PERFORMED BY: [facility] [address] [id number] PATHOLOGIST LABORATORY TECHNOLOGY TEACHER CLEVE MCCULLOUGH M.D.NormalDayton Children'S HospitalComment on above: Performed By: #### COVID-19 STEFAN REINOSOEG #### [facility] [address] [place] [address] USASofia Ag Negativeon 18-62-7015Glkww Ag NegativeNegative NormalNegativeDayton Children'S HospitalComment on above:Result Comment: This is a duplicate Kae SARS Antigen (JANET) result to be used for statistical tracking purpose only. PERFORMED BY: [place] [address] PATHOLOGIST LABORATORY TECHNOLOGY TEACHER CLEVE MCCULLOUGH M.D.Performed By: #### COVID-19 LOC REINOSO #### [id number] [facility] Vital Signs Date TimeVital SignValuePerforming NppcwbiyzYexdnuxc23-20-4823 08:53-0400Body cfuqlh336.72 cmBenjamin Ball DO Work Phone: [phone]06-26-2025 08:53-0400 Body mass index (BMI) [Ratio]26.3 kg/l7Tqwflcfh Ball DO Work Phone: [phone] [place], [place] 5497006-26-2025 08:53-0400 Body jyjqbl87.58 kgBenjamin Ball DO Work Phone: [phone] [place], [place] 5497006-26-2025 08:53-0400 Diastolic blood qmyktxkj84 mm[Hg]Maximiliano Ball DO Work Phone: [phone] [place], [place] 5497006-26-2025 08:53-0400 Heart rate50 /minBenjamin Ball DO Work Phone: [phone] [place], [place] 5497006-26-2025 08:53-0400 Respiratory rate12 /minBenjamin Ball DO Work Phone: [phone] [place], [place] 4373106-26-2025 08:53-0400 Systolic blood lsenvbln008 mm[Hg]Maximiliano Ball DO Work Phone: [phone] [place], [place] 5497006-20-2023 09:00-0400 Body .72 cmBenjamin Ball Other [facility] Other 06-20-2023 09:00-0400Body mass index (BMI) [Ratio] 26.09 kg/g1Zsfoynjk Ball Other [facility] Other 06-20-2023 09:00-0400Body iwaiqz64.84 kgBenjamelania Barksdale Other [employer] [facility] Other 06-20-2023 09:00-0400Diastolic blood epockdif07 mm[Hg] Maximiliano Barksdale [facility] Other 06-20-2023 09:00-0400Respiratory rate12 /minBenjamin Ball Other [facility] Other 06-20-2023 09:00-0400Systolic blood nouhvmmr597 mm[Hg] Maximiliano Barksdale Other [facility] Other Encounters Encounter DateEncounter TypeCare ProviderFacilityStart: 04-04-2025 End: 72-65-8495itexuhldjfKxvhtvcy Ball DO Work Phone: [facility] Work Phone: Start: 04-04-2025 End: 74-26-8563Rqhltvq encounter procedureBenjamin Ball DO-[facility] Work Phone: Start: 01-25-2025 End: [id number] Ball DO Work Phone: [facility] Work Phone: Start: 01-25-2025 End: 71-38-4777Hqvyxtn encounter procedureBenjamin Ball DO-[facility] Work Phone: Start: 98-11-5236Koafewy encounter procedureBenjamin Ball DO Work Phone: [facility]: 08-31-2023 End: 92-97-9748lyvwkbnhzsRdtkyxoa Ball Other [facility] [employer] Other Start: 07-28-7537Pnmtqmlkx encounterBenjamin BallFPG [facility] ClinicStart: 05-04-2023 End: 18-27-5843rzjhtjooutLzdbjghd Ball Other [employer] Other Start: 96-78-3718Gctdxcx evaluation of patient and reportMaximiliano Barksdale Medical ClinicStart: 01-19-2023 End: 11-96-6669hesqteuizfLsimnpzc Ball Other [facility] [employer] Other Start: 26-46-4763Hsaaju outpatient visit 25 minutes [facility] ClinicStart: 02-44-7019Qwmtw health examination Maximiliano Barksdale Other [facility] [employer] Other Start: 07-21-2022 End: 60-26-8556ltstyufyvbRV MAXIMILIANO BARKSDALEFacility:H1 Procedures DateProcedureProcedure DetailPerforming ClinicianStart: 02-21-1605XEB screening DR MAXIMILIANO Ortament on above:Performed By: #### PSASC #### [facility] [address] [place] [address] Dr. Angelina SandersStart: 96-12-2009Mufdytb examination of patientMaximiliano Barksdale Other Start: 01-66-3199Hymhhqgvi for malignant neoplasm of colonMaximiliano Barksdale Other Start: 98-22-8888Guhazadyv for malignant neoplasm of prostateMaximiliano Barksdale Other Depression screeningMaximiliano Barksdale Other Screening for malignant neoplasm of prostateMaximiliano Barksdale Other Plan of Treatment DateCare [facility]DeNew[facility] Immunizations Immunization DateImmunizationNotesCare UraaintyImvknncw99-55-1919kwzqarxli, high dose seasonal, preservative-freeMaximiliano Barksdale DO Work Phone: [facility]10-03-2023influenza, high dose seasonal, preservative-freeBenkaty Barksdale Other [place] [employer] Other [id number] virus vaccine, unspecified formulationBenjamin Ball DO Work Phone: [facility]10-24-2022influenza virus vaccine, split virus (incl. purified surface antigen)Maximiliano Barksdale Other [place] [employer] Other [id number] virus vaccine, unspecified formulationBenjamin Ball DO Work Phone: [phone]10-25-2021COVID-19 mRNA-1273 (Moderna)Maximiliano Barksdale DO Work Phone: [phone]10-07-2021influenza virus vaccine, split virus (incl. purified surface antigen)Maximiliano Barksdale Other [place] [employer] Other [id number] virus vaccine, unspecified formulationBenjamin Ball DO Work Phone: [phone] [place], [place] 4373103-09-2021COVID-19 mRNA-1273 (Moderna)Maximiliano Barksdale DO Work Phone: [phone] [place], [place] 4373102-06-2021COVID-19 mRNA-1273 (Moderna)Maximiliano Barksdale DO Work Phone: [phone] [place], [place] 4373110-05-2020influenza virus vaccine, split virus (incl. purified surface antigen)Maximiliano Barksdale Other [place] [employer] Other [id number] virus vaccine, unspecified formulationBenjamin Ball DO Work Phone: [phone]10-07-2019influenza virus vaccine, split virus (incl. purified surface antigen)Maximiliano Shamir Other [place] [employer] Other [id number] virus vaccine, unspecified formulationBenjamin Ball DO Work Phone: [facility]10-01-2018influenza virus vaccine, split virus (incl. purified surface antigen)Maximiliano Barksdale Other [facility] [employer] Other [id number] virus vaccine, unspecified formulationBenjamin Ball DO Work Phone: [facility]09-26-2017influenza virus vaccine, split virus (incl. purified surface antigen)Maximiliano Barksdale Other [facility] [employer] Other [id number] virus vaccine, unspecified formulationBenjamin Ball DO Work Phone: [facility]10-28-2016influenza virus vaccine, split virus (incl. purified surface antigen)Maximiliano Barksdale Other [facility] [employer] Other [id number] virus vaccine, unspecified formulationBenjamin Ball DO Work Phone: [facility]10-22-2015 pneumococcal conjugate vaccine, 13 valentBenjamin Ball Other [facility]10-13-2015influenza virus vaccine, split virus (incl. purified surface antigen)Maximiliano Barksdale Other [facility] [employer] Other [id number] virus vaccine, unspecified formulationBenjamin Ball DO Work Phone: [facility]09-30-2014tetanus and diphtheria toxoids, adsorbed, preservative free, for adult use (5 Lf of tetanus toxoid and 2 Lf of diphtheria toxoid)Maximiliano Barksdale Other [facility]09-24-2013 pneumococcal polysaccharide vaccine, 23 valentBenjamin Ball Other [facility]09-24-2013tetanus and diphtheria toxoids, adsorbed, preservative free, for adult use (5 Lf of tetanus toxoid and 2 Lf of diphtheria toxoid)Maximiliano Barksdale Other [facility] Hospitalpneumococcal Conjugate, unspecified formulation; Translations: [Need for prophylactic vaccination against Streptococcus pneumoniae (pneumococcus)]Maximiliano Barksdale Other [facility] [employer] Other Payers DatePayer CategoryPayerPolicy [id number] 1960Private Health [id number] Social History DateTypeDetailFacilitySex Assigned At [facility] [employer] Other Start: 70-32-6786Lzmfsdo smoking status NHISNever smoked tobacco (finding)[facility] HospitalexMale (finding) [facility] Hospitaltart: 10-20-6539Jtv Assigned At [facility] Evaluation note 01-25-2025 Note Date & SavbCvzyMiaaifla16-68-7268 Evaluation note* Diagnosis Onset Date Resolution Status Admit Date GERD (gastroesophageal reflux disease) acuteJune 2024 8:44amHypercholesterolemiaacuteJune 2024 8:44am HypertensionacuteJune 2024 8:44amOverweightacuteJune 2024 8:44am Strain of cervical portion of right trapezius muscleacuteJune 2024 8:44am [facility] Work Phone: Evaluation note 08-31-2023 Note Date & AaqvLwakOhvtswpc21-59-9911 Evaluation note* Encounter Date Diagnosis Assessment Notes Treatment Notes Treatment Clinical Notes Aug, Gastroesophageal ref lux disease with esophagitis without hemorrhage (ICD-10 - K21.00) [employer] Other Evaluation note 01-19-2023 Note Date & JtrlPvsiEokznnvr13-41-3664 Evaluation note* Encounter Date Diagnosis Assessment Notes Treatment Notes Treatment Clinical Notes Dec, Pure hypercholesterolemia (ICD-1 0 - E78.00) Instructed on diet and exercise with continued statin therapy.Discussed the beneficial effects of lowering cholesterol in reducing the risk for cerebrovascular and cardiovascular disease. Dec,rimary hypertension (ICD-10 - I10)This patient is instructed to consume a healthy, low-fat, low-salt diet. They are also encouraged to continue exercise to achieve/maintain a normal BMI. Patient is instructed on home BP measurements: - rest for 5 minutes w/o talking- positioned w/ feeton floor and arm supported- average best 2/3 readings w/ goal < 135-85 Dec,astroesophageal reflux disease with esophagitis without hemorrhage (ICD-10 - K21.00)Diet instructions: Smaller portions, avoid eating and laying flat, avoid eating or drinking prior to bedtime. Weight loss. 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 No melena or hematochezia. Plan repeat Dec,Non-seasonal allergic rhinitis due to pollen (ICD-10 - J30.1)Avoid allergens, continue Claritin Can add Flonase if needed [employer] Other Evaluation note Note Date & TypeNoteFacilityEvaluation noteNo InformationNortSharon Regional Medical Center [employer] Other Evaluation note Note Date & TypeNoteFacilityEvaluation note* Diagnosis Onset Date Resolution Status Admit Date GERD (gastroesophageal reflux disease) acuteJune 2024 8:44amHypercholesterolemiaacuteJune 2024 8:44am HypertensionacuteJune 2024 8:44amOverweightacuteJune 2024 8:44am [facility] Work Phone: History general Narrative - Reported Note Date & TypeNoteFacilityHistory general Narrative - Reported* Type Description Date Medical History Body mass index (BMI) of 25.0 to 29.9 Medical HistoryPolyp of colon, villous adenomaMedical HistoryEssential hypertensionMedical HistoryHyperlipidemia type IIMedical HistoryEpigastric abdominal painMedical HistoryBenign prostatic hyperplasia with lower urinary tract symptomsMedical HistoryGastro-esophageal reflux disease with esophagitis, without bleedingMedical HistoryTinea corporisSurgical HistoryColonoscopy w/ polypectomy, repeat 5 years08/18/2021Hospitalization Historysee surgical history [employer] Other Reason for referral (narrative) Note Date & TypeNoteFacilityReason for referral (narrative)No reason for referral information availableGreene [facility] Hospital Work Phone: Summary Purpose Family History Relationship Condition Age at Onset Recorded Date/T corie father Heart disease Unknown Malignant neoplasm of colonUnknownmotherMalignant neoplasmUnknown Advance Directives Advance Directive Response Recorded Date/ Time Advance Directives No August 14, 2021 2:25pm Chief Complaint and Reason for Visit Chief Complaint Admit Date 6 month f/u January 25, 2025 8:44 am Reason for Visit Admit Date GERD (gastroesophageal reflux disease) J [facility] 2024 8:44am Hypercholesterolemia January 25, 2025 8:4 4am Hypertension January 25, 2025 8:44 am Overweight January 25, 2025 8:44 am Chief Complaint Admit Date 6 month f/u January 25, 2025 8:44 am Flu Shot April 04, 2025 10:13am Reason for Visit Admit Date GERD (gastroesophageal reflux disease) J [facility] 2024 8:44am Hypercholesterolemia January 25, 2025 8:4 4am Hypertension January 25, 2025 8:44 am Overweight January 25, 2025 8:44 am Strain of cervical portion of right trap ezius muscle January 25, 2025 8:44am Additional Source Comments (unrecognized sect ion and content) No Status Records FoundNo Status Records Found INFORMATION SOURCE (unrecogn ized section and content) DATE CREATED AUTHOR 08/22/2021 [facility] DATE CREATED AUTHOR AUTHOR'David GUALLPA ATION 07/29/2022 [facility] REASON FOR VISIT (unrecogniz ed section and content) 6 MONTH FOLLOW UPflu shotref ill Care Teams (unrecognized sec tion and content) Team Status: Active Member Role Status Dates Maximiliano Barksdale Primary Care Provider Active Team Status: Inactive Member Role Status Dates Maximiliano Barksdale DO Primary Care Provider Active Start: January 25, 2025 End: January 25jelenaBrisa Calle ProviderActiveStart: January 25, 2025 End: January 25, 2025 Team Status: Inactive Member Role Status Dates Maximiliano Barksdale DO Primary Care Provider Active Start: April 04, 2025 End: April 04jelenaBrisa Calle ProviderActiveStart: April 04, 2025 End: April 04, 2025 Goals (unrecognized section and content) Goals may be documented in a n alternate section FOR RECORDS PERTAINING TO PATIENTS WHO ARE [...] BE BASED ON THE PRIMARY CLINICAL RECORDS. [facility]. provides no warranty or guarantee of the accuracy or completeness of information in this document.
[2025-07-30 10:39] LABS: Hematocrit 43.4 % (42.0-54.0); Hemoglobin 14.7 g/dL (14.0-18.0); Immature Granulocytes Abs Auto 0.02 10^3/uL (0.00-0.03); Immature Granulocytes Pct Auto 0.3 % (0.0-0.5); Lymphocytes Absolute Auto 1.1 10^3/uL (1.2-3.8); Mean Corpuscular HGB Conc 33.9 g/dL (29.9-35.2); Mean Corpuscular Hemoglobin 32.0 pg (25.9-34.0); Mean Corpuscular Volume 94.6 fL (80.0-94.0); Platelet Count 242 10^3/uL (150-450); Red Blood Count 4.59 10^6/uL (4.70-6.10); White Blood Count 6.7 10^3/uL (4.0-11.0)
[2025-07-30 11:00] LABS: Alanine Aminotransferase 21 U/L (16-63); Albumin Globulin Ratio 1.1; Albumin Level 3.7 g/dL (3.4-5.0); Alkaline Phosphatase 75 U/L (46-116); Anion Gap 12.1; Aspartate Amino Transferase 16 U/L (15-37); Blood Urea Nitrogen 18.0 mg/dL (7.0-18.0); Calcium 9.2 mg/dL (8.5-10.1); Carbon Dioxide 28.7 mmol/L (21.0-32.0); Chloride 106 mmol/L (98-107); Cholesterol 122 mg/dL (<=200); Estimated GFR (African America >60 (>=60 mL/min/1.73m^2); Estimated GFR (Non-African Ame >60 (>=60 mL/min/1.73m^2); Globulin 3.4 g/dL; Glucose 96 mg/dL (74-106); HDL Cholesterol 42 mg/dL (40-60); Potassium 4.8 mmol/L (3.5-5.1); Sodium 142 mmol/L (136-145); Total Protein 7.1 g/dL (6.4-8.2); Triglycerides 53 mg/dL (<=150); VLDL CHOLESTEROL 10.6 mg/dL
== END 2025-07-30 10:08 | disposition home or self-care (01) ==
LOC: LAB 10:09
PROVIDERS: PCP Internal Medicine; Visit Provider Internal Medicine
DX: E78.00 Pure hypercholesterolemia, unspecified (principal); I10 Essential (primary) hypertension; Z79.899 Other long term (current) drug therapy; Z12.5 Encounter for screening for malignant neoplasm of prostate
CPT/HCPCS: 36415; 80053; 80061; 85025; G0103